=== PATIENT | male | born 1955 | race Caucasian/White ===

== ENCOUNTER 2020-02-28 08:46 | Outpatient (CLI) | payer OTHER ==
--- NOTE | 2020-02-28 14:43 | NM ---
WHOLE BODY BONE SCAN: HISTORY: Elevated PSA. Recent diagnosis of prostate cancer. Fall, left-sided rib pain. RADIOPHARMACEUTICAL: 32 mCi Technetium 99m-MDP injected intravenously. COMPARISON: None. FINDINGS: There are foci of increased uptake in the left 3rd and 4th ribs consistent with rib fractures. Incre ased uptake in the sternoclavicular joints, shoulders, knees, and feet are consistent with degenerati ve changes. There is increased uptake in the right side of the thoracic spine corresponding to degen erative changes seen on the CT scan of 04/14/2015. No other areas of tracer localization are seen. T racer excretion through the kidneys is within normal limits. Increased uptake in the maxilla are likely due to periodontal disease or sinus disease. IMPRESSION: No evidence of osseous metastatic disease. POS: MARY ANN
== END 2020-02-28 08:47 | disposition home or self-care (01) ==
LOC: NM 08:46
PROVIDERS: ATTEND Urology
DX: R97.20 Elevated prostate specific antigen [PSA] (principal)
CPT/HCPCS: 78306; A9503

== ENCOUNTER 2021-01-08 08:23 | Outpatient (CLI) | payer MEDICARE ==
[2021-01-08] MEDS ORDERED: Magnevist 469MG/ML 20 ML VIAL ONE (10:28)
--- NOTE | 2021-01-08 14:46 | MRI ---
MRI Pelvis W WO Con History: Prostate cancer. Radiation planning. Comparison: None. Findings: Multiplanar multisequence MRI of the prostate was performed prior to and after the intraven ous administration of contrast. Exam was reviewed on a independent 3-D workstation. The prostate measures 3.3 x 2.6 x 3.3 cm for a volume of 14.14 mL. Peripheral zone: Low T2 signal throughout the majority of the peripheral zone. In the peripheral aspe ct of the right base from 6:00-9:00 is an linear focus of mild increased signal on high value DWI although this without low signal on the ADC map. No focal area of high value DWI signal with associat ed low ADC signal. Transitional zone: Low T2 signal throughout the entire transitional zone and anterior fibromuscular s troma. No lentiform focal area of decreased T2 signal. Neurovascular bundles: Intact. Prostate capsule: Intact. Lymph nodes: No adenopathy. Soft tissues: Small left sided fat-containing obturator hernia. No free fluid within the pelvis. Bones: No abnormal focal area of marrow signal replacement on the T1 weighted sequence to suggest oss eous metastatic disease. Impression: 1. PI-RADS Category 2: Low (clinically significant prostate cancer is unlikely to be present). 2. Intact prostatic capsule and neurovascular bundles. 3. No adenopathy. 4. No evidence for osseous metastatic disease. 5. Small prostate with low T2 signal throughout the entire peripheral and transitional zones can be s een with androgen deprivation therapy. 6. Small fat-containing left obturator hernia. Transcribed Date/Time: 01/08/2021 3:32 PM
== END 2021-01-08 08:24 | disposition home or self-care (01) ==
LOC: TBSIIMAG 08:23
PROVIDERS: ATTEND Radiology Radiation Oncology
DX: C61 Malignant neoplasm of prostate (principal); K45.8 Other specified abdominal hernia without obstruction or gangrene
CPT/HCPCS: 72197; 82565; A9579

== ENCOUNTER 2021-12-02 16:39 | Inpatient (IN) | payer MEDICARE ==
[2021-12-02 17:58] VITALS: BMI 28.9
[2021-12-02] MEDS ORDERED: Senokot S 8.6-50 MG TAB PO PRN (18:48)
[2021-12-02] MEDS ORDERED: Ondansetron ODT 4 MG TAB PO PRN (18:48)
[2021-12-02] MEDS ORDERED: Ondansetron PF 4 MG/2 ML Vial IVP PRN (18:48)
[2021-12-02] MEDS ORDERED: Electrolyte Replacement Protocol 1 EACH FS SCH (19:00)
[2021-12-02] MEDS ORDERED: Electrolyte Replacement Protocol FS PRN (19:15)
[2021-12-02 19:36] LABS: Bilirubin, Direct 0.5 mg/dL (0.1-0.3); Phosphorus 3.3 mg/dL (2.3-4.7)
[2021-12-02] MEDS: Heparin 5,000 UNITS/ML VIAL SC SCH (20:20)
[2021-12-02] MEDS: Lorazepam 1 MG TAB PO SCH (20:25)
[2021-12-02] MEDS: Nicotine 14 MG PATCH TD SCH (20:26)
[2021-12-02] MEDS: cefTRIAXone\\ROCEPHIN 1 GM in Sodium Chloride 0.9% 100 ML IVPB SCH (20:26)
[2021-12-02] MEDS: Sodium Chloride 0.9% 1,000 ML IV SCH (20:26)
[2021-12-02] MEDS ORDERED: Magnesium Sulfate 4 GM in Sodium Chloride 0.9% 250 ML 250 ML IVPB SCH ×3 (21:00→23:59)
[2021-12-02] MEDS ORDERED: Magnesium 2 GM/50 ML 2 GM in Premix Bag 1 BAG IVPB SCH (23:45)
[2021-12-03] MEDS: Lorazepam 1 MG TAB PO SCH ×4 (01:07→20:47)
[2021-12-03] MEDS: Acetaminophen 325 MG TAB PO PRN ×4 (01:07→20:47)
[2021-12-03] MEDS: Sodium Chloride 0.9% 1,000 ML IV SCH ×3 (01:56→22:06)
[2021-12-03 07:59] LABS: Anion Gap 18 mmol/L (10-20); BUN (Urea Nitrogen) 42 mg/dL (8.4-25.7); Calc. Creatinine Clearance 20 mL/min (70-130); Calcium 8.7 mg/dL (7.8-10.44); Carbon Dioxide 17 mmol/L (23-31); Chloride 98 mmol/L (98-107); Glucose 91 mg/dL (80-115); Magnesium 3.8 mg/dL (1.6-2.6); Phosphorus 4.8 mg/dL (2.3-4.7); Potassium 3.6 mmol/L (3.5-5.1); Sodium 129 mmol/L (136-145)
[2021-12-03 08:03] LABS: Hemoglobin 12.2 g/dL (14.0-18.0); Platelet Count 153 thou/uL (130-400); Red Blood Cell (RBC) Count 3.69 mill/uL (4.70-6.10); White Blood Cell (WBC) Count 12.2 thou/uL (4.8-10.8)
[2021-12-03 08:32] LABS: Band 24 % (5-11); Lymphocytes 4 % (21-51); MDiff Complete? YES; Monocytes 4 % (0-10); Myelocyte 1 % (0-0); Neutrophil 67 % (42-75); Platelet Morphology Comment Appears Adequate; Polychromasia SLIGHT = 2-3 cells (100X) (0-2/hpf)
[2021-12-03] MEDS: Heparin 5,000 UNITS/ML VIAL SC SCH ×2 (08:43→20:49)
[2021-12-03] MEDS: Multivit, Therapeutic 1 TAB PO SCH (08:43)
[2021-12-03] MEDS: Levothyroxine Sodium 50 MCG TAB PO SCH (08:43)
[2021-12-03] MEDS: Folic Acid 1 MG TAB PO SCH (08:43)
[2021-12-03] MEDS ORDERED: Spironolactone 25 MG TAB PO SCH (09:00)
[2021-12-03] MEDS ORDERED: DILTIAZEM HCL 360 MG PO SCH (09:00)
[2021-12-03] MEDS: Nicotine 14 MG PATCH TD SCH (20:14)
[2021-12-03] MEDS: cefTRIAXone\\ROCEPHIN 1 GM in Sodium Chloride 0.9% 100 ML IVPB SCH (20:50)
[2021-12-04] MEDS: Lorazepam 1 MG TAB PO SCH ×4 (01:43→20:07)
[2021-12-04] MEDS: Acetaminophen 325 MG TAB PO PRN ×3 (01:44→20:07)
[2021-12-04 07:11] LABS: Anion Gap 13 mmol/L (10-20); BUN (Urea Nitrogen) 60 mg/dL (8.4-25.7); Calc. Creatinine Clearance 17 mL/min (70-130); Calcium 8.2 mg/dL (7.8-10.44); Carbon Dioxide 17 mmol/L (23-31); Chloride 101 mmol/L (98-107); Glucose 91 mg/dL (80-115); Magnesium 3.3 mg/dL (1.6-2.6); Phosphorus 4.3 mg/dL (2.3-4.7); Potassium 3.4 mmol/L (3.5-5.1); Sodium 128 mmol/L (136-145)
[2021-12-04] MEDS ORDERED: Potassium Chloride 20 MEQ TAB PO SCH (08:00)
[2021-12-04] MEDS: Multivit, Therapeutic 1 TAB PO SCH (08:41)
[2021-12-04] MEDS: Folic Acid 1 MG TAB PO SCH (08:41)
[2021-12-04] MEDS: Levothyroxine Sodium 50 MCG TAB PO SCH (08:42)
[2021-12-04] MEDS: Heparin 5,000 UNITS/ML VIAL SC SCH ×2 (08:42→20:05)
[2021-12-04] MEDS: Sodium Chloride 0.9% 1,000 ML IV SCH ×2 (08:42→15:58)
[2021-12-04] MEDS: Nicotine 14 MG PATCH TD SCH (19:01)
[2021-12-04] MEDS: Cefepime 1 GM in Sodium Chloride 0.9% 100 ML IVPB SCH (20:08)
[2021-12-05 06:16] LABS: Anion Gap 15 mmol/L (10-20); BUN (Urea Nitrogen) 73 mg/dL (8.4-25.7); Calc. Creatinine Clearance 16 mL/min (70-130); Calcium 8.2 mg/dL (7.8-10.44); Carbon Dioxide 13 mmol/L (23-31); Chloride 101 mmol/L (98-107); Glucose 76 mg/dL (80-115); Magnesium 3.1 mg/dL (1.6-2.6); Phosphorus 4.6 mg/dL (2.3-4.7); Potassium 3.4 mmol/L (3.5-5.1); Sodium 126 mmol/L (136-145)
[2021-12-05] MEDS: Folic Acid 1 MG TAB PO SCH (08:22)
[2021-12-05] MEDS: Levothyroxine Sodium 50 MCG TAB PO SCH (08:22)
[2021-12-05] MEDS: Multivit, Therapeutic 1 TAB PO SCH (08:22)
[2021-12-05] MEDS: Cefepime 1 GM in Sodium Chloride 0.9% 100 ML IVPB SCH ×2 (08:22→20:38)
[2021-12-05] MEDS: Heparin 5,000 UNITS/ML VIAL SC SCH ×2 (08:22→20:39)
[2021-12-05] MEDS ORDERED: Sodium Bicarbonate 150 MEQ in Dextrose 5% in Water 1,000 ML IV SCH (09:45)
[2021-12-05] MEDS ORDERED: Potassium Chloride 20 MEQ TAB PO SCH ×3 (10:00→17:00)
[2021-12-05] MEDS ORDERED: Sodium Bicarb 50 MEQ/50 ML Abboject 8.4% SYRINGE IVP SCH (12:00)
[2021-12-05] MEDS: Sodium Bicarbonate Tab 325 MG TAB PO SCH ×2 (14:54→20:38)
[2021-12-05] MEDS: Acetaminophen 325 MG TAB PO PRN (16:56)
[2021-12-05] MEDS: Thiamine 100 MG TAB PO SCH (20:39)
[2021-12-06] MEDS: Acetaminophen 325 MG TAB PO PRN ×2 (00:08→05:21)
[2021-12-06 07:15] LABS: Hemoglobin 10.5 g/dL (14.0-18.0); Mean Corpuscular HGB CONC 33.3 g/dL (32.0-36.0); Mean Corpuscular Hemoglobin 32.7 pg (27.0-31.0); Mean Corpuscular Volume 98.1 fL (78.0-98.0); Mean Platelet Volume 7.4 fL (7.4-10.4); Platelet Count 156 thou/uL (130-400); RBC Distribution Width 12.2 % (11.5-14.5); Red Blood Cell (RBC) Count 3.22 mill/uL (4.70-6.10); White Blood Cell (WBC) Count 15.7 thou/uL (4.8-10.8)
[2021-12-06 07:29] LABS: Anion Gap 13 mmol/L (10-20); BUN (Urea Nitrogen) 76 mg/dL (8.4-25.7); Calc. Creatinine Clearance 17 mL/min (70-130); Calcium 8.3 mg/dL (7.8-10.44); Carbon Dioxide 17 mmol/L (23-31); Chloride 103 mmol/L (98-107); Glucose 101 mg/dL (80-115); Potassium 3.7 mmol/L (3.5-5.1); Sodium 129 mmol/L (136-145)
[2021-12-06 07:39] LABS: Band 11 % (5-11); Eosinophils 1 % (0-10); Lymphocytes 6 % (21-51); MDiff Complete? YES; Monocytes 6 % (0-10); Neutrophil 75 % (42-75); Platelet Morphology Comment Appears Adequate; Polychromasia SLIGHT = 2-3 cells (100X) (0-2/hpf); Reactive Lymphocytes 1 % (0-10)
[2021-12-06] MEDS: Cefepime 1 GM in Sodium Chloride 0.9% 100 ML IVPB SCH ×2 (08:04→20:28)
[2021-12-06] MEDS: Folic Acid 1 MG TAB PO SCH (08:05)
[2021-12-06] MEDS: Heparin 5,000 UNITS/ML VIAL SC SCH ×2 (08:05→20:28)
[2021-12-06] MEDS: Multivit, Therapeutic 1 TAB PO SCH (08:05)
[2021-12-06] MEDS: Sodium Bicarbonate Tab 325 MG TAB PO SCH ×3 (08:05→20:28)
[2021-12-06] MEDS: Levothyroxine Sodium 50 MCG TAB PO SCH (08:05)
[2021-12-06] MEDS ORDERED: Sodium Bicarb 50 MEQ/50 ML Abboject 8.4% SYRINGE IVP SCH (12:00)
[2021-12-06] MEDS ORDERED: HYDROcodone/Acetaminophen 5/325 mg Tablet PO PRN (17:38)
[2021-12-06] MEDS ORDERED: Acetaminophen 325 MG TAB PO PRN (17:39)
[2021-12-06] MEDS: Thiamine 100 MG TAB PO SCH (21:46)
[2021-12-07] MEDS: Sodium Bicarbonate Tab 325 MG TAB PO SCH ×2 (08:31→14:37)
[2021-12-07] MEDS: Folic Acid 1 MG TAB PO SCH (08:32)
[2021-12-07] MEDS: Cefepime 1 GM in Sodium Chloride 0.9% 100 ML IVPB SCH (08:32)
[2021-12-07] MEDS: Multivit, Therapeutic 1 TAB PO SCH (08:32)
[2021-12-07] MEDS: Levothyroxine Sodium 50 MCG TAB PO SCH (08:34)
[2021-12-07] MEDS: Heparin 5,000 UNITS/ML VIAL SC SCH ×2 (08:34→21:23)
[2021-12-07 12:49] LABS: Hemoglobin 11.6 g/dL (14.0-18.0); Mean Corpuscular HGB CONC 34.1 g/dL (32.0-36.0); Mean Corpuscular Hemoglobin 33.4 pg (27.0-31.0); Mean Corpuscular Volume 97.8 fL (78.0-98.0); Mean Platelet Volume 7.4 fL (7.4-10.4); Platelet Count 240 thou/uL (130-400); RBC Distribution Width 12.4 % (11.5-14.5); Red Blood Cell (RBC) Count 3.48 mill/uL (4.70-6.10); White Blood Cell (WBC) Count 13.8 thou/uL (4.8-10.8)
[2021-12-07 13:14] LABS: Anion Gap 13 mmol/L (10-20); BUN (Urea Nitrogen) 67 mg/dL (8.4-25.7); Calc. Creatinine Clearance 20 mL/min (70-130); Carbon Dioxide 20 mmol/L (23-31); Chloride 103 mmol/L (98-107); Glucose 96 mg/dL (80-115); Potassium 3.3 mmol/L (3.5-5.1)
[2021-12-07 13:18] LABS: Band 4 % (5-11); Lymphocytes 3 % (21-51); MDiff Complete? YES; Monocytes 6 % (0-10); Myelocyte 1 % (0-0); Neutrophil 83 % (42-75); Ovalocytes SLIGHT = 2-5 cells (100X) (0-1/hpf); Platelet Morphology Comment Appears Adequate; Polychromasia SLIGHT = 2-3 cells (100X) (0-2/hpf); Reactive Lymphocytes 3 % (0-10)
[2021-12-07 13:22] LABS: Sodium 133 mmol/L (136-145)
[2021-12-07] MEDS ORDERED: Potassium Chloride 20 MEQ TAB PO SCH (15:15)
[2021-12-07] MEDS ORDERED: cefTRIAXone\\ROCEPHIN 1 GM in Sodium Chloride 0.9% 100 ML IVPB SCH (21:00)
[2021-12-07] MEDS: Thiamine 100 MG TAB PO SCH (21:22)
[2021-12-07] MEDS: guaiFENesin ER 600 MG TAB PO SCH (21:22)
[2021-12-08] MEDS: Levothyroxine Sodium 50 MCG TAB PO SCH (08:18)
[2021-12-08] MEDS: guaiFENesin ER 600 MG TAB PO SCH (08:18)
[2021-12-08] MEDS: Heparin 5,000 UNITS/ML VIAL SC SCH (08:18)
[2021-12-08] MEDS: Multivit, Therapeutic 1 TAB PO SCH (08:18)
[2021-12-08] MEDS: Folic Acid 1 MG TAB PO SCH (08:18)
[2021-12-08 12:22] VITALS: BP 157/81; TEMP 99
[2021-12-08 12:55] LABS: Anion Gap 14 mmol/L (10-20); BUN (Urea Nitrogen) 54 mg/dL (8.4-25.7); Calc. Creatinine Clearance 24 mL/min (70-130); Calcium 9.1 mg/dL (7.8-10.44); Carbon Dioxide 20 mmol/L (23-31); Chloride 106 mmol/L (98-107); Glucose 131 mg/dL (80-115); Potassium 3.6 mmol/L (3.5-5.1); Sodium 136 mmol/L (136-145)
== END 2021-12-08 13:44 | disposition home or self-care (01) | DRG 872 ==
LOC: T4-B 17:53
PROVIDERS: ADMIT Internal Medicine; ATTEND Internal Medicine
DX: A41.51 Sepsis due to Escherichia coli [E. coli] (principal); N39.0 Urinary tract infection, site not specified; E87.2 Acidosis; N17.9 Acute kidney failure, unspecified; E87.1 Hypo-osmolality and hyponatremia; N18.4 Chronic kidney disease, stage 4 (severe); Z20.822 Contact with and (suspected) exposure to COVID-19; I12.9 Hypertensive chronic kidney disease with stage 1 through stage 4 chronic kidney disease, or unspecified chronic kidney disease; R65.20 Severe sepsis without septic shock; E03.9 Hypothyroidism, unspecified; K21.9 Gastro-esophageal reflux disease without esophagitis; K70.30 Alcoholic cirrhosis of liver without ascites; F17.210 Nicotine dependence, cigarettes, uncomplicated; F10.20 Alcohol dependence, uncomplicated; D53.9 Nutritional anemia, unspecified; E83.42 Hypomagnesemia; E87.6 Hypokalemia; Z90.09 Acquired absence of other part of head and neck; Z85.46 Personal history of malignant neoplasm of prostate; Z79.890 Hormone replacement therapy; Z79.899 Other long term (current) drug therapy
CPT/HCPCS: 36415; 36416; 71045; 76770; 80048; 82248; 82607; 82746; 83605; 83735; 84100; 85025; 93005; 93010; J0692; J0696; J1644; J3475; J3490; J7050; J7070

== ENCOUNTER 2023-01-30 08:27 | Outpatient (CLI) | payer MEDICARE | END 2023-01-30 08:28 | disposition home or self-care (01) | LOC: NM 08:27 | PROVIDERS: ATTEND Internal Medicine Hematology & Oncology | DX: C61 Malignant neoplasm of prostate (principal); K76.0 Fatty (change of) liver, not elsewhere classified; K57.90 Diverticulosis of intestine, part unspecified, without perforation or abscess without bleeding; E27.8 Other specified disorders of adrenal gland | CPT/HCPCS: 74177; 78306; 82565; A9503 ==